=== PATIENT | female | born 1955 | race Caucasian/White ===

== ENCOUNTER 2017-03-08 09:31 | Outpatient (CLI) | payer BC, OTHER ==
--- NOTE | 2017-03-08 17:36 | Mammography Report ---
DIGITAL DIAGNOSTIC BILATERAL MAMMOGRAM: 03/08/2017 CLINICAL INDICATION: History of breast cancer. COMPARISON: Films from [place], [place] dated 03/12/2016, 11/29/2014, 09/22/2012, 03/03/2012, 12/2011, 06/25/2011, 06/21/2011, 04/29/2010. TECHNIQUE: Bilateral CC and MLO views, left true lateral view. The breasts again demonstrate heterogeneously dense fibroglandular parenchyma bilaterally. There is a shifting pattern of circumscribed nodules bilaterally, compatible with waxing and waning cysts. Po stoperative and post treatment changes in the left upper-outer quadrant are stable. No suspicious ma sses, clustered microcalcifications, or regions of architectural distortion are identified. IMPRESSION: BENIGN FINDINGS. RECOMMENDATION: ROUTINE ANNUAL SCREENING UNLESS OTHERWISE CLINICALLY INDICATED. BIRADS CATEGORY: 2, BENIGN FINDINGS. STANDARD QUALIFYING STATEMENTS 1. This examination was reviewed with the aid of Computed-Aided Detection (CAD). 2. A negative or benign imaging report should not delay biopsy if clinically suspicious findings are present. Consider surgical consultation if warranted. More than 5% of cancers are not identified b y imaging. 3. Dense breasts may obscure an underlying neoplasm. JOB #: [id number] EXT JOB #:[id number]
== END 2017-03-08 09:32 | disposition home or self-care (01) ==
LOC: DI 09:31
PROVIDERS: ATTEND Physician Assistant Medical
DX: D05.12 Intraductal carcinoma in situ of left breast (principal)
CPT/HCPCS: 77066

== ENCOUNTER 2018-11-23 10:13 | Outpatient (CLI) | payer BC, OTHER ==
--- NOTE | 2018-11-23 12:36 | Mammography Report ---
Reason: RT BREAST LUMP Procedure Date: 11/23/2018 Accession Number: [id number] / [id number] Procedure: DORCAS - Diagnostic Dig RT CPT Code: FULL RESULT: EXAM: Diagnostic Dig RT DATE: 11/23/2018 11:46 AM CLINICAL HISTORY: Diagnostic examination. The patient presents with a palpable right breast lump. TECHNIQUE: (R) - Right right CC, right spot CC, right MLO, right ML images are obtained. Focused right breast ultrasound is performed. COMPARISON: 04/28/2018 through 04/29/2010. PARENCHYMAL PATTERN: (D) - The breast(s) demonstrate(s) heterogeneously dense fibroglandular parenchyma. FINDINGS: The previously identified well-circumscribed hypodense mass in the lateral mid right breast corresponds to the patient's palpable finding and is definitively characterized by focused breast ultrasound which demonstrates a simple cyst. There are no suspicious masses, calcifications, or areas of distortion. IMPRESSION: Benign findings. BI-RADS category 2. RECOMMENDATION: (ANNUAL) - Recommend routine annual screening mammography. BI-RADS CATEGORY: (2) - Benign Findings. STANDARD QUALIFYING STATEMENTS: 1. This examination was not reviewed with the aid of Computer-Aided Detection (CAD). 2. A negative or benign imaging report should not preclude biopsy if clinically suspicious findings are present. 3. Dense breasts may obscure an underlying neoplasm. 4. This examination was reviewed with the aid of 3D breast imaging (tomosynthesis).
== END 2018-11-23 10:14 | disposition home or self-care (01) ==
LOC: DI 10:13
PROVIDERS: ATTEND Physician Assistant Medical
DX: N60.01 Solitary cyst of right breast (principal)
CPT/HCPCS: 76642

== ENCOUNTER 2020-09-04 12:37 | Outpatient (CLI) | payer OTHER ==
--- NOTE | 2020-09-05 10:47 | Mammography Report ---
BILATERAL DIGITAL SCREENING MAMMOGRAM 3D/2D: 09/04/2020 CLINICAL: Routine screening. Personal history of left breast cancer. Comparison is made to exams dated: 11/23/2018 mammogram, 11/23/2018 ultrasound, 04/28/2018 mammogram, 02/23 mammogram, 03/12/2016 mammogram, and 11/29/2014 ultrasound - [facility]. The tissue of both breasts is heterogeneously dense. This may lower the sensitivity of mammography. There are benign cysts in the right breast. There also are benign calcifications in the left breast. Additionally, there are benign post operative findings in the left breast. No significant masses, calcifications, or other findings are seen in either breast. There has been no significant interval change. IMPRESSION: BENIGN There is no mammographic evidence of malignancy. A 1 year screening mammogram is recommended. This exam was interpreted at Station ID: [id number]. NOTE: For mammograms, a report in lay terms will be sent to the patient. Approximately 15% of breast malignancies will not be visualized mammographically. In the management of a palpable breast mass, a negative mammogram must not discourage biopsy of a clinically suspicious lesion. Electronically Signed By: José Alexander M.D. ddp/penrad:09/04/2020 13:18:47 ACR BI-RADS Category 2: Benign Finding(s) 3342F PARENCHYMAL PATTERN: (D) - The breast(s) demonstrate(s) heterogeneously dense fibroglandular christopher silva. BI-RADS CATEGORY: (2) - 2 RECOMMENDATION: (ANNUAL) - Recommend routine annual screening mammography. [id number] 1 year screening LATERALITY: (B)
== END 2020-09-04 12:38 | disposition home or self-care (01) ==
LOC: DI.N 12:37
DX: Z12.31 Encounter for screening mammogram for malignant neoplasm of breast (principal); Z85.3 Personal history of malignant neoplasm of breast

== ENCOUNTER 2022-05-18 12:19 | Outpatient (CLI) | payer MEDICARE, OTHER ==
--- NOTE | 2022-05-18 15:36 | Mammography Report ---
BILATERAL DIGITAL SCREENING MAMMOGRAM 3D/2D: 05/18/2022 CLINICAL: Routine screening. Personal history of left breast cancer. Comparison is made to exams dated: 09/04/2020 mammogram, 11/23/2018 mammogram, 11/23/2018 ultrasound, 04/28 mammogram, 03/08/2017 mammogram, and 03/12/2016 mammogram - [facility]. Both breasts are heterogeneously dense, which may obscure small masses (category c / 51-75% glandular tissue). There are benign cysts in the right breast. There also are benign calcifications in the left breast. Additionally, there are benign post operative findings in the left breast. No significant masses, calcifications, or other findings are seen in either breast. There has been no significant interval change. IMPRESSION: BENIGN There is no mammographic evidence of malignancy. A 1 year screening mammogram is recommended. This exam was interpreted at Station ID: [id number]. NOTE: For mammograms, a report in lay terms will be sent to the patient. Approximately 15% of breast malignancies will not be visualized mammographically. In the management of a palpable breast mass, a negative mammogram must not discourage biopsy of a clinically suspicious lesion. Electronically Signed By: Clark Day M.D. acr/penrad:05/18/2022 14:17:24 ACR BI-RADS Category 2: Benign Finding(s) 3342F PARENCHYMAL PATTERN: (D) - The breast(s) demonstrate(s) heterogeneously dense fibroglandular christopher silva. BI-RADS CATEGORY: (2) - 2 RECOMMENDATION: (ANNUAL) - Recommend routine annual screening mammography. [id number] 1 year screening LATERALITY: (B)
== END 2022-05-18 12:20 | disposition home or self-care (01) ==
LOC: DI.N 12:19
DX: Z12.31 Encounter for screening mammogram for malignant neoplasm of breast (principal); Z85.3 Personal history of malignant neoplasm of breast

== ENCOUNTER 2022-06-03 14:12 | Outpatient (CLI) | payer MEDICARE, OTHER ==
--- NOTE | 2022-06-04 13:35 | Ultrasound Report ---
PROCEDURE: Ext Limited Non Vascular INDICATIONS: MASS OF RIGHT ARM TECHNIQUE: Real-time scanning was performed of the right upper extremity, with image documentation. COMPARISON: None. FINDINGS: In the area of concern, there is a circumscribed horizontal, ovoid mass in the subcutaneou s tissues measuring 2.0 x 2.3 x 0.5 cm. This is isoechoic to adjacent subcutaneous tissue. Color Dopp ler indicates no peripheral or internal vascular flow. IMPRESSION: 1. 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 No suspicious features. Reviewed by: Nina Prather MD on 06/04/2022 1:33 PM PST Approved by: Nina Prather MD on 06/04/2022 1:33 PM PST Station ID: [id number]
== END 2022-06-03 14:13 | disposition home or self-care (01) ==
LOC: DI 14:12
PROVIDERS: ATTEND Physician Assistant
DX: M79.89 Other specified soft tissue disorders (principal)

== ENCOUNTER 2023-07-19 10:44 | Outpatient (CLI) | payer MEDICARE, OTHER ==
--- NOTE | 2023-07-20 09:53 | Ultrasound Report ---
LIMITED ULTRASOUND OF RIGHT BREAST AND AXILLA: 07/19/2023 CLINICAL: Palpable right breast lump. Comparison is made to exams dated: 07/19/2023 mammogram, 05/18/2022 mammogram, 09/04/2020 mammogram, 11/23/2018 mammogram, 04/28/2018 mammogram, and 03/08/2017 mammogram - [facility]. Color flow ultrasound of the right breast 8 o'clock, and axilla regions was performed. [place] scale im ages of the real-time examination were reviewed. There are multiple cysts in the right breast that correlate with mammography findings in the upper ou ter quadrant. No sonographic abnormalities seen in the area of palpable concern. There are some adj acent cysts but these do not correlate with suspicious mammographic findings. IMPRESSION: INCOMPLETE: NEEDS ADDITIONAL IMAGING EVALUATION There is no abnormality seen in the right breast to correspond with the area of clinical concern and mammography finding indicated by triangular marker in the middle depth of the upper outer right breas t. The mammographic finding is suspicious of malignancy and stereotactic guided biopsy is recommende d. Multiple right breast cysts are noted and correlate with other prevously seen, stable mammographic fi ndings. No sonographic abnormalities identified in the axilla. No axillary adenopathy. Findings and recommendations were discussed with the patient by Dr. Barcenas during today's examination. This exam was interpreted at Station ID: [id number]. Electronically Signed By: Parish Ruvalcaba M.D. aty/:07/19/2023 13:16:34 Ultrasound BI-RADS: 0 Indeterminate BI-RADS CATEGORY: (0) - 0 Biopsy [id number] Immediate follow-up LATERALITY: (R)
--- NOTE | 2023-07-20 09:53 | Mammography Report ---
BILATERAL DIGITAL DIAGNOSTIC MAMMOGRAM 3D/2D WITH SPOT COMPRESSION: 07/19/2023 CLINICAL: Palpable right breast lump. Bilateral exam. Personal history of left breast cancer. Comparison is made to exams dated: 05/18/2022 mammogram, 09/04/2020 mammogram, 11/23/2018 mammogram, 04/28 mammogram, 03/08/2017 mammogram, and 03/12/2016 mammogram - [facility]. Both breasts are heterogeneously dense, which may obscure small masses (category c / 51-75% glandular tissue). The left breast has post-operative findings. There is a new irregular equal density focal asymmetry in the right breast at 10 o'clock middle depth . This correlates as palpated and with area of clinical concern. There is architectural distortion associated with the focal asymmetry. There also are multiple equal density focal asymmetries in the right breast superior lateral quadrant posterior depth. These are not significantly changed. No other significant masses, calcifications, or other findings are seen in either breast. IMPRESSION: INCOMPLETE: NEEDS ADDITIONAL IMAGING EVALUATION The new irregular equal density focal asymmetry in the right breast at 10 o'clock middle depth is ind eterminate. The multiple equal density focal asymmetries in the right breast superior lateral quadrant posterior depth likely represent clustered cysts. An ultrasound is recommended for further evaluation and is scheduled to immediately follow this exami nation. This exam was interpreted at Station ID: [id number]. NOTE: For mammograms, a report in lay terms will be sent to the patient. Approximately 15% of breast malignancies will not be visualized mammographically. In the management of a palpable breast mass, a negative mammogram must not discourage biopsy of a clinically suspicious lesion. Electronically Signed By: Parish Ruvalcaba M.D. aty/:07/19/2023 13:10:01 ACR BI-RADS Category 0: Incomplete 3340F PARENCHYMAL PATTERN: (D) - The breast(s) demonstrate(s) heterogeneously dense fibroglandular partaylory ma. BI-RADS CATEGORY: (0) - 0 Ultrasound [id number] Immediate follow-up LATERALITY: (R)
== END 2023-07-19 10:45 | disposition home or self-care (01) ==
LOC: DI 10:44
PROVIDERS: ATTEND Family Medicine
DX: R92.8 Other abnormal and inconclusive findings on diagnostic imaging of breast (principal); R92.333 Mammographic heterogeneous density, bilateral breasts; N60.11 Diffuse cystic mastopathy of right breast

== ENCOUNTER 2023-08-09 08:15 | Outpatient (CLI) | payer MEDICARE, OTHER ==
[2023-08-09] MEDS ORDERED: LIDOCAINE-MPF 1% 5 ML VIAL ONE (08:22)
[2023-08-09] MEDS ORDERED: LIDOCAINE 1%-EPI 1:100000 20 ML MDV ONE (08:22)
[2023-08-09] MEDS: LIDOCAINE 1%-EPI 1:100000 20 ML MDV SUBQ ONE (09:40)
[2023-08-09] MEDS: LIDOCAINE-MPF 1% 5 ML VIAL TD ONE (09:41)
--- NOTE | 2023-08-15 09:30 | Mammography Report ---
DIGITAL TOMOGRAPHIC MAMMOGRAPHY GUIDED STEREOTACTIC GUIDED BIOPSY RIGHT BREAST USING VACUUM DEVICE WI TH MARKING DEVICE INSERTED AND POST DIGITAL MAMMOGRAPHIC IMAGING- - RIGHT BREAST POST-PROCEDURE IMAGI NG FOR MARKER PLACEMENT: 08/09/2023 CLINICAL: Right breast stereotactic biopsy of focal asymmetry with architectural distortion. Correlation is made to exams dated: 07/19/2023 mammogram, 07/19/2023 ultrasound, 05/18/2022 mammogram, 09/04/2020 mammogram, 11/23/2018 mammogram, and 04/28/2018 mammogram - [facility]. A stereotactic guided biopsy was performed for the area of architectural distortion located in the ri t breast at 10 o'clock middle depth. This was described on the previous mammography report. The s kin was prepped in the usual manner. Local anesthetic was administered to the access site. A skin n ick was made in the breast. The abnormality was approached from the craniocaudal aspect using an upr ight digital tomographic mammography unit. A biopsy needle was placed adjacent to the abnormality un jud computer guidance and confirmatory stereotactic mammography images were obtained to document need le placement. Once the needle was documented to be in the correct location, eight specimens were obt ained using a vacuum assisted device. The patient received additional local anesthetic during the pr ocedure. A hourglass clip was inserted into the biopsy cavity. A skin adhesive and a sterile dressi ng were applied to the access site. Post procedure digital mammographic imaging demonstrates the loc ation device at the targeted area. The specimens were sent to the laboratory for pathological analys is. IMPRESSION: STEREOTACTIC GUIDED BIOPSY BENIGN Stereotactic guided biopsy of the area of architectural distortion in the right breast at 10 o'clock middle depth was successful with no apparent post procedure complications. Pathology indicates benign adenosis, fibrocystic changes, and duct ectasia. Pathology results are co ncordant with imaging findings. Recommend routine annual mammogram screening in 1 year. This exam was interpreted at Station ID: [id number]. Endy Velásquez M.D., Ph.D. [facility] [place],/:08/12/2023 18:04:57 BI-RADS CATEGORY: () - Unspecified - other recall n/a LATERALITY: (B)
== END 2023-08-09 08:16 | disposition home or self-care (01) ==
LOC: DI 08:15
PROVIDERS: ATTEND Family Medicine
DX: N60.21 Fibroadenosis of right breast (principal); N60.41 Mammary duct ectasia of right breast
CPT/HCPCS: 19081